=== PATIENT | male | born 1955 | race Caucasian/White ===

== ENCOUNTER 2020-04-02 12:52 | Emergency (ER) | payer MEDICAID ==
[~2020-04-02] VITALS: Ht 180.3 cm; Wt 68.0 kg
--- NOTE | 2020-04-02 13:05 | NUR ---
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
[2020-04-02] MEDS ORDERED: METOCLOPRAMIDE 5 MG/ML, 2ML ONE (13:23)
[2020-04-02] MEDS ORDERED: KETOROLAC 30 MG/1 ML ONE (13:23)
[2020-04-02] MEDS ORDERED: DIPHENHYDRAMINE 50 MG/ML, 1ML ONE (13:23)
[2020-04-02] MEDS ORDERED: SODIUM CHLORIDE FLUSH 10ML SYR IVF ONE (13:30)
[2020-04-02] MEDS ORDERED: SODIUM CHLORIDE 0.9% 1,000ML IVBOLUS ONE (13:30)
[2020-04-02] MEDS ORDERED: DIPHENHYDRAMINE 50 MG/ML, 1ML IVPush ONE (13:30)
[2020-04-02] MEDS ORDERED: KETOROLAC 30 MG/1 ML IVPush ONE (13:30)
[2020-04-02] MEDS ORDERED: PLEASE ENTER ALLERGIES MC SCH (13:30)
[2020-04-02] MEDS ORDERED: METOCLOPRAMIDE 5 MG/ML, 2ML IVPush ONE (13:30)
[2020-04-02 14:16] VITALS: BP 122/71
--- NOTE | 2020-04-02 14:26 | NUR ---
PT BACK FROM CT, AMBULATED TO BR WITH STEADY GAIT, BACK TO [facility] AT THIS TIME, STATES IMPROVEMENT IN [place] POST BLINDSTITCH HEMMER
== END 2020-04-02 15:13 | disposition home or self-care (01) ==
LOC: ED 14:58
DX: R51.9 Headache, unspecified (principal); Z87.891 Personal history of nicotine dependence
CPT/HCPCS: 70450; 96361; 96374; 96375; 99284; J1200; J1885; J2765; J7030